=== PATIENT | female | born 1990 | race Caucasian/White ===

== ENCOUNTER 2016-04-27 14:01 | Inpatient (IN) | payer OTHER ==
[2016-04-27] MEDS ORDERED: OXYTOCIN IN LR 500 ML IV ONE (14:28)
[2016-04-27] MEDS ORDERED: OXYTOCIN 10 UNITS/ML VIAL IM ONE (14:40)
[2016-04-27 14:59] VITALS: BMI 26.9
[2016-04-27] MEDS ORDERED: PUMP TUBING ONE (15:09)
[2016-04-27] MEDS ORDERED: LIDOCAINE 1% (PRES FREE) 30 ML VIAL ONE (15:09)
[2016-04-27] MEDS ORDERED: OXYTOCIN IN LR 0 ML IV ONE (15:09)
[2016-04-27] MEDS ORDERED: LIDOCAINE Viscous 2% 15 ML UDCUP ONE (15:09)
[2016-04-27] MEDS ORDERED: MINERAL OIL 25 ML BOT ONE (15:09)
[2016-04-27] MEDS ORDERED: OXYTOCIN 10 UNITS/ML VIAL ONE (15:09)
[2016-04-27] MEDS ORDERED: LIDOCAINE 1% (PRES FREE) 30 ML VIAL SUB-Q ONE (20:36)
[2016-04-27] MEDS ORDERED: IBUPROFEN 800 MG TABLET PO ONE (20:36)
--- NOTE | 2016-04-27 21:31 | PCMAN ---
OB Admission Note - History : 3 Term: 2 : 0 Abortions (S&E): 0 Livin Gestational Age (weeks): 39 Days (#/7): 6 Admit Cervical Dilation:: 4 Admit Cervical Effacement (%):: 95 Admit Station:: -3 Admit Presentaton:: vertex Membrane Status: Intact Labor Onset (Date): 04/27/16 Contractions: Yes Contraction Frequency:: 4-6 Heart Rate:: 150 Status:: category 1 EFW:: 7 Summary of Course:: Uncomplicated multip, GBS neg, dating by L:ABRAM, confirmed by US. - Labs Blood Type: A (+) positive Rubella Status: Immune GBS Status: Negative Abnormal Labs: None - Physical Exam General: Afebrile, No Acute Distress Psych/Mental Status: Mood/Affect Appropriate Neurological: Grossly Intact, Alert, Oriented x 4, Normal Gait, Normal Speech, Normal Reflexes, Cranial Nerves 3-12 Intact HEENT: Atraumatic, PERRLA, EOMI, Mucous membr. moist/pink Lungs: Clear to Auscultation Bilaterally Cardiovascular: Regular Rate and Rhythm, No Murmur Abdomen: Normal Bowel Sounds Genitourinary: Normal Female Genitalia Rectal Exam: Deferred Extremities: Full ROM, No Edema Skin: Normal Color, No Rash - Problems (1) Term Status: Acute Code: Z34.80Assessment/Plan: In active labor, expecting . GBS neg and she declines pain med, would like to avoid IV
--- NOTE | 2016-04-27 21:34 | PCMDEL ---
Delivery Note - Labor 1st stage (hr/min):: 1 hr/ 26 min 2nd stage (hr/min):: 3 min 3rd stage (hr/min):: 4 min Total (hr/min):: 1hr/ 33 min Pushed (hr/min):: 3 min - Delivery Delivery (Date): 04/27/16 Delivery (Time): 20:16 Gender: Female Position: OA Umbilical Cord: 3 Vessel, Nuchal Cord Delayed Cord Clamping:: < 1-2 min 1 Minute Total: 7 5 Minute Total: 8 Placenta:: intact EBL:: 450 ml Perineum:: 2nd degree vaginal and perineal laceration Suture:: 3-0 Vicryl Anesthesia/Meds:: Local for repair Length ROM:: 9 min Comments:: Beautiful, uncomplicated delivery
[2016-04-27] MEDS ORDERED: LANOLIN 50 APPLIC/7G TUBE TP PRN (21:36)
[2016-04-27] MEDS ORDERED: CALCIUM CARBONATE 500 MG TAB.CHEW PO PRN (21:36)
[2016-04-27] MEDS ORDERED: BENZOCAINE/MENTHOL 60 APPLIC/BOT TP PRN (21:36)
[2016-04-27] MEDS ORDERED: OXYCODONE HCL 5 MG TABLET PO PRN (21:36)
[2016-04-27] MEDS ORDERED: ACETAMINOPHEN 325 MG TABLET PO PRN (21:36)
[2016-04-28] MEDS: IBUPROFEN 800 MG TABLET PO PRN ×3 (03:28→15:36)
[2016-04-28 06:58] LABS: HEMATOCRIT 31.7 % (37.0-47.0); HEMOGLOBIN 10.2 gm/l (12.0-16.0)
--- NOTE | 2016-04-28 08:22 | PDOC39B ---
Hospital Course: ADMIT DATE: 04/27/16 DISCHARGE: 04/28/16 ADMISSION DIAGNOSES: Term , uncomplicated PROCEDURES: Normal Spontaneous Vaginal Delivery HISTORY OF PRESENT ILLNESS: 25 year old G3 T2 L2 at 39 weeks 6 days presenting with active labor had uncomplicated vaginal delivery with 2nd degree perineal and vaginal laceration HOSPITAL COURSE: The patient had an uncomplicated post course. By day of discharge the patient is ambulating, eating, voiding, and passing flatus without difficulty. Pain is controlled and lochia is appropriate. She is [] - Physical Exam Vital Signs: Temp Pulse Resp BP Pulse Ox 98.2 F 57 16 109/58 04/28/16 00:58 04/28/16 00:58 04/28/16 00:58 04/28/16 00:58 General: Afebrile, No Acute Distress Psych/Mental Status: Mood/Affect Appropriate Neurological: Alert, Oriented x 4 HEENT: Atraumatic, PERRLA, EOMI, Mucous membr. moist/pink Lungs: Clear to Auscultation Bilaterally Cardiovascular: Regular Rate and Rhythm, No Murmur Breast: Soft, No Nipples Cracked Fundus: Firm, Midline, Below Umbilicus Abdomen: Normal Bowel Sounds Genitourinary: Normal Female Genitalia, Edema (mild, improved from last night) Lochia: Light Extremities: Full ROM, No Edema Skin: Normal Color, Warm, Dry, Intact, No Rash Wound: Well Approximated - Discharge Diagnosis (1) (normal spontaneous vaginal delivery) Status: AcuteAssessment/Plan: stable, discharge desired, will plan for that if day goes well. (2) Perineal laceration during delivery, delivered Status: AcuteAssessment/Plan: sutures intact, healing well. - Discharge Plan Instruction Forms: Vaginal Discharge Instructions Prescriptions: Vitamin D3 [VITAMIN D3 1000 UNITS SOFTGEL (SHF)] 5,000 units PO DAILY #100 softgel Follow-Up: Areli Maki MD [Primary Care Provider] - In 6 weeks
[2016-04-28] MEDS ORDERED: DOCUSATE SODIUM 100 MG CAPSULE PO SCH (09:00)
[2016-04-28 20:38] VITALS: BP 119/68
== END 2016-04-28 20:22 | disposition home or self-care (01) | DRG 775 ==
LOC: FBCOUT 14:01 → FBC 14:02
PROVIDERS: ADMIT Family Medicine; ATTEND Family Medicine
PROC: 10E0XZZ Delivery of Products of Conception, External Approach (ICD-10-PCS; principal; 2016-04-27)
PROC: 0KQM0ZZ Repair Perineum Muscle, Open Approach (ICD-10-PCS; 2016-04-27)
DX: O70.1 Second degree perineal laceration during delivery (principal); Z37.0 Single live birth; O62.3 Precipitate labor; Z3A.39 39 weeks gestation of pregnancy